=== PATIENT | female | born 1990 | race Two or more races ===

== ENCOUNTER 2020-07-01 10:35 | Inpatient (IN) | payer OTHER ==
[2020-07-01] MEDS ORDERED: IBUPROFEN 600 MG TABLET (FP) PO PRN (12:31)
[2020-07-01] MEDS ORDERED: ONDANSETRON 4 MG/2 ML VIAL IVPUSH PRN (12:31)
[2020-07-01] MEDS ORDERED: CITRIC ACID/SODIUM CITRATE 30 ML UNIT-DOSE CUP PO ONE (12:58)
[2020-07-01] MEDS ORDERED: ELECTROLYTE-148 SOLN 1,000 ML IV SCH (13:00)
--- NOTE | 2020-07-01 13:01 | HP ---
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: Alzheimer's, CVA, Dementia, Migraine, Multiple Sclerosis, Peripheral Neuropathy, Parkinson's, Seizure, Syncope, TIA, Vertigo, Other Cardiovascular: No: AFIB, Aneurysm, Aortic Insufficiency, Aortic Stenosis, CAD, CHF, Deep Vein Thrombosis, HTN, Hyperlipdemia, VT, Mitral Insufficiency, Mitral Stenosis, Murmur, Pulmonary Hypertension, Other Pulmonary: No: Asthma, Bronchitis, Cancer, COPD, O2 Dependent, Pneumonia, Previously Intubated, Pulmonary Embolus, Pulmonary Fibrosis, Sleep Apnea, Other Gastrointestinal: No: Ascites, Cancer, Constipation, Crohn's Disease, Diverticulitis, Diverticulosis, Esophageal Varices, Gastritis, GERD, GI Bleed, Hemorrhoids, Hiatal Hernia, Inflamatory Bowel Disease, Irritable Bowel Disease, Pancreatitis, Peptic Ulcer Disease, Ulcerative Colitis, Other Reproductive: No: Ectopic , Endometriosis, Fibroids, PID, Polycystic Ovary Syndrome, Postmenopausal, Other ...: 3 ...Para: 2 ...Term: 2 ...: 0 ...Spon : 0 ...Induced : 0 ...Living Children: 2 ...Multiple Gestation: 1 ...LMP: 10/16/19 ... Weeks Gestation by Dates: 37 ...EDC by Dates: 07/22/20 ...EDC by Sono: 07/22/20 Heme/Onc: Yes: Anemia Infectious Disease: No: AIDS, C-Diff, Herpes Zoster, HIV, MRSA, STD's, Tuberculosis, VREF, Other Psych: No: Addictions, Anxiety, Bipolar, Depression, Panic, Psychosis, Schizophrenia, Other Musculoskeletal: No: Bursitis, Chronic low back pain, Hemiparesis, Hemiplegia, Osteoarthritis, Paraplegia, Other Rheumatology: Yes: Lupus, Other (Mixed Connective Tissue Disorder) Endocrine: No: Bonifacio's Disease, Meshoppen's Disease, Diabetes Insipidus, Diabetes Mellitus, Hyperparathyroidism, Hyperthyroidism, Hypothyroidism, Osteopenia, SIADH, Other Dermatology: No: Basal Cell, Cellulitis, Eczema, Melanoma, Psoriasis, Squamous Cell, Other - Past Surgical History Past Surgical History: No: None, AAA Repair, AICD, Amputation, Appendectomy, Arthrosocopy, AV Fistula/Graft, Bariatric Surgery, Breast Biopsy, Bypass, CABG, Carotid Endarterectomy, Cataract Removal, Cholecystectomy, Colectomy, Colonoscopy, Colostomy, Craniotomy, , Cystectomy, Hernia Repair, Hysterectomy, Ileal Conduit, Ileosotomy, Joint Replacement, Kidney Transplant, Laminectomy, Liver Transplant, Mastectomy, Nephrectomy, Oopherectomy, Orchiectomy, Permanent Pacemaker, Prostatectomy, Splenectomy, Stent, Thoracotomy, TURP, Tonsillectomy, Tubal Ligation, Upper Endoscopy, Valve Replacement, Vasectomy, Vein Stripping/Ligation Hx Myomectomy: No Hx Transabdominal Cerclage: No - Smoking History Smoking history: Never smoked Have you smoked in the past 12 months: No - Alcohol/Substance Use Hx Alcohol Use: No Home Medications - Allergies Allergies/Adverse Reactions: Allergies Allergy/AdvReac Type Severity Reaction Status Date / Time No Known Allergies Allergy Verified 07/01/20 11:51 - Home Medications Home Medications: Ambulatory Orders Vit 93/Iron Fum/Folic [ Formula Tablet] 1 tab PO DAILY 07/01/20 Review of Systems - Review of Systems Constitutional: reports: No Symptoms Cardiovascular: reports: No Symptoms Respiratory: reports: No Symptoms Physical Exam - Maternity Vital Signs: Vital Signs Temperature 98.2 F 07/01/20 11:28 Pulse Rate 100 H 07/01/20 11:28 Respiratory Rate 18 07/01/20 11:28 Blood Pressure 127/81 07/01/20 11:28 O2 Sat by Pulse Oximetry (%) Constitutional: Yes: Well Nourished, No Distress, Calm - Abdominal Exam/OB Number of Fetuses: Multiple Presentation: Breech Contractions: No Monitor Mode: External Category: I Accelerations: Non-Uniform Decelerations: None - Vaginal Exam/OB Vaginal Bleeding: No Presentation: Marcelino Breech - Physical Exam Edema: No Imaging - Results Ultrasound: Report Reviewed Assessment/Plan 30yo @ 37.0wks here for scheduled C/S, twin , IUGR, breech/cephalic Admit to L&D NPO, IVFs Ancef SCDs Cat I tracing x 2 Risk reviewed with patient and partner; consents signed. Proceed to OR Richard Lyons MD
[2020-07-01] MEDS ORDERED: morphine SULFATE/PF 0.5 MG/ML (2cc Syringe - QUVA) ONE (13:02)
[2020-07-01] MEDS ORDERED: ePHEDrine SULFATE 50 MG/1 ML AMPULE ONE (13:18)
[2020-07-01] MEDS ORDERED: OXYTOCIN 10 UNITS/ML VIAL ONE ×4 (13:31→13:48)
[2020-07-01] MEDS ORDERED: ceFAZolin SODIUM 1 GM VIAL ONE ×2 (13:31)
--- NOTE | 2020-07-01 13:45 | OP ---
Operative Note - Note: Operative Date: 07/01/20 Pre-Operative Diagnosis: 37 week Twin , IUGR Twin A, Breech/Cephalic presentation Operation: Primary Findings: Twin A: VFI, double footling breech, Apgars 9/9, weight pending Twin B: VFI, cephalic, Apgars 9/9, weight pending Normal tubes and ovaries Post-Operative Diagnosis: Same as Pre-op Surgeon: Lacey Lyons Ear Machine Operator: Serge Mantilla Anesthesia: Spinal Estimated Blood Loss (mls): 800 Drains, Volume Out (mls): 100 Operative Report Dictated: Yes
[2020-07-01] MEDS ORDERED: MISOPROSTOL 200 MCG TABLET PV ONE (14:00)
[2020-07-01] MEDS ORDERED: OXYTOCIN 20 UNITS in 0.9% NS 20 UNIT/1,000 ML INFUS.BAG IV ONE (15:02)
[2020-07-01] MEDS ORDERED: predniSONE 5 MG TABLET (UD) PO ONE (16:00)
[2020-07-01] MEDS: IBUPROFEN 800 MG/8 ML IJ IVPB PRN ×2 (16:47→22:53)
[2020-07-01] MEDS: FERROUS SO4 325 MG TABLET (FP) PO SCH (18:24)
--- NOTE | 2020-07-01 20:30 | OP ---
DATE OF OPERATION: 07/01/2020 PREOPERATIVE DIAGNOSIS: A 37-week twin , intrauterine growth restriction of twin A, breech cephalic presentation. POSTOPERATIVE DIAGNOSIS: A 37-week twin , intrauterine growth restriction of twin A, breech cephalic presentation. PROCEDURE: Primary low transverse section. SURGEON: Lacey Lyons MD. GUTTER MOUTH CUTTER: JOSELINE Lyon. ANESTHESIA: Spinal ESTIMATED BLOOD LOSS: 600 URINE OUTPUT: 100 mL of clear urine at the end of the procedure FINDINGS: Twin A, viable female double footling breech, Apgars 9 and 9, weight pending. Twin B, viable female infant, cephalic presentation, Apgars 9 and 9, weight pending, normal tubes and ovaries bilaterally. COMPLICATIONS: None. CONDITION: Stable to recovery room. DESCRIPTION OF PROCEDURE: After appropriate consents were signed, patient was taken to the operating room. Spinal anesthesia was administered. The abdomen was prepped and draped in the normal sterile fashion. Sterile rivera catheter had been inserted in the bladder prior to entry into the operating room. Timeout was performed confirming correct patient and procedure. After anesthesia had been confirmed, a Pfannenstiel skin incision was then carried through to the underlying layers until the fascia was nicked in the midline. Fascia was then extended laterally with the Potter scissors. The inferior aspect of the fascia was then grasped with the Ambreen clamp, tented upwards, and the rectus muscles dissected off bluntly and with Potter scissors. Attention was then paid to the superior aspect which was taken down in a similar fashion. The muscles were bluntly in the midline. Bladder blade was inserted and bladder flap was created with Metzenbaum scissors. The uterus incised in a low transverse segment. Clear amniotic fluid was noted. A was delivered with typical breech maneuver. The cord was clamped and cut, the was handed off to the waiting NICU staff. Twin B was noted to be breech presentation, the amniotic sac was ruptured, clear amniotic fluid was noted for twin B. The was delivered without difficulty with the remaining shoulder and body. The cord was clamped and cut, and twin B was handed off to the waiting NICU staff. Placenta was then removed manually. The uterus was cleared of all clot and debris. The hysterotomy was closed in a single layer with 1-0 Vicryl with good hemostasis. The gutters were cleared of all clot and debris and noted to be unremarkable. Adnexa were inspected and noted to be unremarkable bilaterally. Hysterotomy was reexamined and noted to be hemostatic. Muscles were closed with 2-0 chromic. The fascia was closed with a 1-0 Vicryl. Subcutaneous fat was closed with 2-0 plain. The skin was closed with 3-0 Biosyn. Bandages were applied. Sponge, lap, needle count was correct x3. Patient did receive Ancef at the start of the procedure. She was taken from the operating room to the recovery room in stable condition. MD PEDRO MONTEIRO/[id number]
[2020-07-01] MEDS: HYDROXYCHLOROQUINE SO4 200 MG TABLET (FP) PO SCH (21:33)
[2020-07-02] MEDS: IBUPROFEN 800 MG/8 ML IJ IVPB PRN (05:52)
--- NOTE | 2020-07-02 08:14 | PN ---
Post Progress Note - Subjective Subjective: Not yet ambulating, rivera is out, no nausea/vomiting, no flatus Post Day: 1 Type of Delivery: Primary C/S Vital Signs: Vital Signs Temperature 97.8 F 07/02/20 06:00 Pulse Rate 72 07/02/20 06:00 Respiratory Rate 18 07/02/20 06:00 Blood Pressure 121/78 07/02/20 06:00 O2 Sat by Pulse Oximetry (%) 100 07/01/20 22:00 Breast Exam: Yes: Other Uterus: Yes: Fundus Firm Incision: Yes: Dressing dry and intact, Sutures intact Abdomen/GI: Yes: Abdomen soft Lochia, amount: Moderate Extremities: Yes: Calves non-tender Perineum: Yes: Intact Assessment/Plan 30 y/o on POD # 1 in stable condition and pp/post-op precautions discussed. -Follow up AM CBC -continue PP/post-op care -encourage ambulation
[2020-07-02] MEDS: ACETAMINOPHEN 325 MG TABLET (FP) PO PRN ×4 (09:44→23:07)
[2020-07-02] MEDS: FERROUS SO4 325 MG TABLET (FP) PO SCH ×2 (09:44→17:30)
[2020-07-02] MEDS: HYDROXYCHLOROQUINE SO4 200 MG TABLET (FP) PO SCH ×2 (09:44→21:26)
[2020-07-02] MEDS: IBUPROFEN 600 MG TABLET (FP) PO PRN ×4 (09:45→23:10)
[2020-07-02] MEDS ORDERED: DIPHTH,PERTUSS(ACELL),TET 0.5 ML DISP.SYRIN IM ONE (10:00)
--- NOTE | 2020-07-02 10:45 | PN ---
Progress Note (short form) - Note Progress Note: Anesthesia postop note 30 y/o F s/p spinal anesthesia duramorph for section. POD#1 vss, aaox3, sensorymotor intact distally, pain well controlled. No anesthesia complications.
[2020-07-02 16:36] LABS: BASO % 0.4 % (0-2.0); EOS % 0.5 % (0-4.5); HEMATOCRIT 25.7 % (32.4-45.2); HEMOGLOBIN 8.1 GM/dL (10.7-15.3); LYMPH % 13.8 % (8-40); MCH 25.5 pg (25.7-33.7); MCHC 31.4 g/dl (32.0-36.0); MEAN CELL VOLUME 81.2 fl (80-96); MONO % 6.3 % (3.8-10.2); PLATELET COUNT 130 K/MM3 (134-434); RBC 3.16 M/mm3 (3.60-5.2); RDW 17.6 % (11.6-15.6); WHITE BLOOD COUNT 11.2 K/mm3 (4.0-10.0)
[2020-07-03] MEDS: ACETAMINOPHEN 325 MG TABLET (FP) PO PRN ×2 (06:34→15:35)
[2020-07-03] MEDS: IBUPROFEN 600 MG TABLET (FP) PO PRN ×2 (06:35→15:35)
--- NOTE | 2020-07-03 07:21 | PN ---
Post Progress Note - Subjective Subjective: pt c/o weakness ,No c/o dizziness c/o gaseous distention . , h/o bm after suppository passing flatus infrequently tolerated reg diet . voiding without difficulty h/o IBS Post Day: 2 Type of Delivery: Primary C/S Vital Signs: Vital Signs Temperature 97.8 F 07/02/20 22:00 Pulse Rate 74 07/02/20 22:00 Respiratory Rate 18 07/02/20 22:00 Blood Pressure 118/66 07/02/20 22:00 O2 Sat by Pulse Oximetry (%) 98 07/02/20 10:00 Breast Exam: Yes: Soft, Other (not BF , not pumping ). No: Engorged Uterus: Yes: Fundus Firm, Fundus below umbilicus, Non-tender Incision: Yes: Sutures intact. No: Redness, Oozing Abdomen/GI: Yes: Abdomen soft, Abdominal Distention (mild . BS are active ), Passing flatus, Tolerating PO (diet). No: Tender Lochia: Yes: Rubra Lochia, amount: Moderate Extremities: Yes: Calves non-tender Perineum: Yes: Intact Activity: Ambulating - Labs Labs: CBC WBC 11.2 K/mm3 (4.0-10.0) H 07/02/20 15:30 RBC 3.16 M/mm3 (3.60-5.2) L 07/02/20 15:30 Hgb 8.1 GM/dL (10.7-15.3) L 07/02/20 15:30 Hct 25.7 % (32.4-45.2) L 07/02/20 15:30 MCV 81.2 fl (80-96) 07/02/20 15:30 MCH 25.5 pg (25.7-33.7) L 07/02/20 15:30 MCHC 31.4 g/dl (32.0-36.0) L 07/02/20 15:30 RDW 17.6 % (11.6-15.6) H 07/02/20 15:30 Plt Count 130 K/MM3 (134-434) L 07/02/20 15:30 MPV 10.0 fl (7.5-11.1) 07/02/20 15:30 Absolute Neuts (auto) 8.8 K/mm3 (1.5-8.0) H 07/02/20 15:30 Neutrophils % 79.0 % (42.8-82.8) 07/02/20 15:30 Lymphocytes % 13.8 % (8-40) D 07/02/20 15:30 Monocytes % 6.3 % (3.8-10.2) 07/02/20 15:30 Eosinophils % 0.5 % (0-4.5) 07/02/20 15:30 Basophils % 0.4 % (0-2.0) 07/02/20 15:30 Nucleated RBC % 0 % (0-0) 07/02/20 15:30 Preop h/h 8.7/27.2 Other Findings, Remarks: RS cta Problem List - Problems (1) Status post section routine follow-up Code(s): Z39.2 - ENCOUNTER FOR ROUTINE FOLLOW-UP; Z98.891 - HISTORY OF UTERINE SCAR FROM PREVIOUS SURGERY (2) Anemia Code(s): D64.9 - ANEMIA, UNSPECIFIED Qualifiers: Anemia type: iron deficiency Assessment/Plan s/p primary c/s for twins s/p SLE Mixed Connective tissuse disorder on hydrochloroquin anemia preop , not much cange in h/h preop & post op Twins in 3CN , may consider discharge tomorrow.
[2020-07-03] MEDS: FERROUS SO4 325 MG TABLET (FP) PO SCH ×2 (08:24→18:32)
[2020-07-03 08:34] LABS: BASO % 0.4 % (0-2.0); EOS % 0.3 % (0-4.5); HEMATOCRIT 22.5 % (32.4-45.2); HEMOGLOBIN 7.2 GM/dL (10.7-15.3); LYMPH % 9.5 % (8-40); MCH 25.6 pg (25.7-33.7); MCHC 32.1 g/dl (32.0-36.0); MEAN CELL VOLUME 79.7 fl (80-96); MEAN PLT VOLUME 9.9 fl (7.5-11.1); MONO % 4.7 % (3.8-10.2); NEUT % 85.1 % (42.8-82.8); PLATELET COUNT 130 K/MM3 (134-434); RBC 2.82 M/mm3 (3.60-5.2); RDW 17.3 % (11.6-15.6); WHITE BLOOD COUNT 10.8 K/mm3 (4.0-10.0)
[2020-07-03] MEDS: HYDROXYCHLOROQUINE SO4 200 MG TABLET (FP) PO SCH (11:16)
[2020-07-04] MEDS: ACETAMINOPHEN 325 MG TABLET (FP) PO PRN ×3 (00:33→22:13)
[2020-07-04] MEDS: IBUPROFEN 600 MG TABLET (FP) PO PRN ×3 (00:33→22:12)
[2020-07-04] MEDS: HYDROXYCHLOROQUINE SO4 200 MG TABLET (FP) PO SCH ×3 (00:34→22:09)
[2020-07-04 09:08] LABS: BASO % 0.5 % (0-2.0); EOS % 1.1 % (0-4.5); LYMPH % 19.7 % (8-40); MCH 25.8 pg (25.7-33.7); MCHC 31.6 g/dl (32.0-36.0); MEAN CELL VOLUME 81.7 fl (80-96); MEAN PLT VOLUME 9.6 fl (7.5-11.1); NEUT % 71.7 % (42.8-82.8); PLATELET COUNT 133 K/MM3 (134-434); RDW 17.7 % (11.6-15.6); WHITE BLOOD COUNT 8.7 K/mm3 (4.0-10.0)
[2020-07-04] MEDS: FERROUS SO4 325 MG TABLET (FP) PO SCH ×2 (09:35→17:12)
[2020-07-05] MEDS: IBUPROFEN 600 MG TABLET (FP) PO PRN (08:14)
[2020-07-05] MEDS: FERROUS SO4 325 MG TABLET (FP) PO SCH (08:14)
[2020-07-05] MEDS: ACETAMINOPHEN 325 MG TABLET (FP) PO PRN (08:15)
--- NOTE | 2020-07-05 08:15 | DS ---
Physical Exam-INSIDE SALES COORDINATOR Vital Signs: Vital Signs Temperature 98.2 F 07/05/20 06:08 Pulse Rate 60 07/05/20 06:08 Respiratory Rate 18 07/05/20 06:08 Blood Pressure 114/74 07/05/20 06:08 O2 Sat by Pulse Oximetry (%) 99 07/04/20 22:00 Constitutional: Yes: Well Nourished, No Distress, Calm Eyes: Yes: WNL, Conjunctiva Clear, EOM Intact HENT: Yes: WNL, Atraumatic, Normocephalic Neck: Yes: WNL, Supple, Trachea Midline Cardiovascular: Yes: WNL, Regular Rate and Rhythm Respiratory: Yes: WNL, Regular, CTA Bilaterally Gastrointestinal: Yes: WNL ...Rectal Exam: Yes: WNL Renal/: Yes: WNL ....Post : Yes: Uterus firm, Uterus non-tender, Slight lochia rubra Breast(s): Yes: WNL Musculoskeletal: Yes: WNL Extremities: Yes: WNL Edema: LLE: Trace, RLE: Trace Integumentary: Yes: WNL Wound/Incision: Yes: Clean/Dry, Well Approximated, Steri Strips Neurological: Yes: WNL, Alert, Oriented ...Motor Strength: WNL Psychiatric: Yes: WNL, Alert, Oriented Labs: CBC, BMP 07/04/20 08:00 Delivery - Delivery Section: Primary Type of Anesthesia: Spinal Episiotomy/Laceration: None EBL (cc): 800 Delivery, Single - Stages of Labor Placenta: Yes: Expressed - Feeding Plan Initial Plan: Elected not to breastfeed exclusively throughout hospitalization Delivery, Multiple Births - Stages of Labor Delivery Baby "A" Date: 07/01/20 Time: 13:22 Placenta/Membranes "A" Date: 07/01/20 Time: 13:22 Delivery Baby "B" Date: 07/01/20 Time: 13:23 Placenta/Membranes "B" Date: 07/01/20 Time: 13:23 - Condition of Multiple Births [place] 1 (A) Management Recruiter/Forge Helper Present: Yes Gender: Female Weight: 4 lb 13 oz Total Hours ROM (HRS/MINS): 6 MINS 2 (B) Management Recruiter/Forge Helper Present: Yes Infant Gender: Female Weight: 5 lb 4 oz Total Hours ROM (HRS/MINS): 7 MINS - 1 (A) 1 Minute Score: 8 1 (A) 5 Minutes Score: 9 [place] 2 (B) 1 Minute Score: 8 [place] 2 (B) 5 Minutes Score: 9 Discharge Summary Reason For Visit: TWINS Current Active Problems Anemia (Acute) Status post section routine follow-up (Acute) Procedures: Principal: primary LST c/s Hospital Course: anemia, recived 1 u PRBC Health Concerns: anemia Plan of Treatment: iron, vit , follow up [facility] care 1 week Condition: Stable - Instructions Diet, Activity, Other Instructions: Regular Diet Follow up with Dr. Lyons next week for an incision check Referrals: Lacey Lyons MD [Staff Physician] - - Home Medications Comprehensive Discharge Medication List: Ambulatory Orders Ferrous Sulfate [Feosol] 325 mg PO DAILY #30 tablet 07/01/20 Ibuprofen 600 mg PO Q6H PRN #30 tablet 07/01/20 Oxycodone HCl/Acetaminophen [Percocet 5-325 mg Tablet -] 1 - 2 tab PO Q6H PRN #20 tab MDD 4 07/01/20 Vit 93/Iron Fum/Folic [ Formula Tablet] 1 tab PO DAILY 07/01/20
[2020-07-05 08:37] LABS: EOS % 1.9 % (0-4.5); HEMATOCRIT 25.2 % (32.4-45.2); HEMOGLOBIN 8.1 GM/dL (10.7-15.3); MCH 26.5 pg (25.7-33.7); MCHC 32.3 g/dl (32.0-36.0); MEAN CELL VOLUME 81.9 fl (80-96); MONO % 5.6 % (3.8-10.2); NEUT % 72.5 % (42.8-82.8); PLATELET COUNT 157 K/MM3 (134-434); RBC 3.07 M/mm3 (3.60-5.2); RDW 17.8 % (11.6-15.6); WHITE BLOOD COUNT 8.9 K/mm3 (4.0-10.0)
[2020-07-05] MEDS: HYDROXYCHLOROQUINE SO4 200 MG TABLET (FP) PO SCH (10:10)
[2020-07-05 15:38] VITALS: BP 137/76; PULSE 67; TEMP 98
--- NOTE | 2020-07-08 17:07 | PATH ---
Surgical Pathology Report Patient Name: ISHAAN BETANCOURT [facility]. Rec. #: [id number] /Age/Gender: 1990 (Age: 30) / F Account: [id number] Location: [facility] OBS/BANANA GRADER Taken: 07/01/2020 Received: 07/02/2020 Reported: 07/08/2020 Physicians: Lacey Lyons Specimen(s) Received PLACENTA,TWIN Clinical History , primary twins , 37 weeks Final Diagnosis TWIN PLACENTA, SECTION: SEPARATE DISCS TWIN PLACENTA. PLACENTA A , 284 G THIRD TRIMESTER PLACENTA WITH TRIVASCULAR UMBILICAL CORD AND UNREMARKABLE PLACENTAL MEMBRANES. PLACENTA B , 435 G THIRD TRIMESTER PLACENTA WITH TRIVASCULAR UMBILICAL CORD AND UNREMARKABLE PLACENTAL MEMBRANES. Electronically Signed Nanda Christopher M.D. Gross Description Received fresh labeled "placenta," is a twin placenta comprised of two separate discs, joined by dividing membranes. The dividing membranes are baron and opaque. There are 2 clamps marking the umbilical cord of placenta "A" and 1 clamp marking the umbilical cord of placenta "B", per the surgeon. Placenta "A" is 284 g and measures 13.0 x 9.5 x 3.4 cm. The attached membranes are baron, translucent with focal opacities and insert marginally. The umbilical cord measures 29 cm in length and averages 1 cm in diameter. The cord inserts eccentrically, 2.5 cm to the nearest margin. No true knots or strictures are identified. Cut surface of the umbilical cord reveals 3 vessels. The surface is jewell blue with minimal fibrin deposition and appropriate caliber vessels. The maternal surface is red-brown with focal defects. Sectioning reveals red-brown, spongy parenchyma. No lesions are identified. Placenta "B" is 435 g and measures 15.5 x 15.0 x 3.2 cm. The attached membranes are baron, translucent with focal opacities and insert marginally. The umbilical cord measures 23 cm in length and averages 1 cm in diameter. The cord inserts eccentrically, 1.5 cm to the nearest margin. No true knots or strictures are identified. The cut surface of the umbilical cord reveals 3 vessels. The surface is jewell blue with minimal fibrin deposition and appropriate caliber vessels. The maternal surface is red-brown with focal defects. Sectioning reveals red-brown, spongy parenchyma. No lesions are identified. Utilization Reviewer sections are submitted in 7 cassettes as follows: 1-placenta "A" membrane roll and umbilical cord; 0-2-rvzr-thickness sections of placenta "A"; 4-dividing membranes; 5-placenta "B" membrane roll and umbilical cord; 7-1-yjdh-thickness sections of placenta "B". 07/05/2020 [facility]07/05/2020
== END 2020-07-05 14:50 | disposition home or self-care (01) | DRG 540 ==
LOC: JLDR 10:35 → J3W 16:08
PROVIDERS: ADMIT Obstetrics & Gynecology; ATTEND Obstetrics & Gynecology
PROC: 10D00Z1 Extraction of Products of Conception, Low, Open Approach (ICD-10-PCS; principal; 2020-07-01)
PROC: 30233N1 Transfusion of Nonautologous Red Blood Cells into Peripheral Vein, Percutaneous Approach (ICD-10-PCS; 2020-07-05)
DX: O82 Encounter for cesarean delivery without indication (principal); O36.5930 Maternal care for other known or suspected poor fetal growth, third trimester, not applicable or unspecified; O30.043 Twin pregnancy, dichorionic/diamniotic, third trimester; Z37.2 Twins, both liveborn; Z3A.37 37 weeks gestation of pregnancy; O32.1XX2 Maternal care for breech presentation, fetus 2; O32.1XX1 Maternal care for breech presentation, fetus 1; O99.02 Anemia complicating childbirth; D50.9 Iron deficiency anemia, unspecified; O99.89 Other specified diseases and conditions complicating pregnancy, childbirth and the puerperium; M32.9 Systemic lupus erythematosus, unspecified
CPT/HCPCS: 36415; 36430; 85025; 86850; 86900; 86901; 86922; 88307-TC; 90715; P9058

== ENCOUNTER 2023-07-21 12:00 | Inpatient (IN) | payer OTHER ==
[2023-07-21] MEDS: ELECTROLYTE-148 SOLN 1,000 ML IV SCH (12:45)
[2023-07-21 13:14] VITALS: BMI 28.3
[2023-07-21] MEDS ORDERED: CITRIC ACID/SODIUM CITRATE 30 ML UNIT-DOSE CUP PO ONE (13:15)
[2023-07-21] MEDS ORDERED: FENTANYL CITRATE/PF 50 MCG/ML VIAL ONE (13:44)
[2023-07-21] MEDS ORDERED: morphine SULFATE/PF 1 MG/2 ML (2cc Syringe - QUVA) ONE (13:44)
[2023-07-21] MEDS ORDERED: METHYLERGONOVINE MALEATE 0.2 MG/1 ML AMP IM PRN (14:59)
[2023-07-21] MEDS: IBUPROFEN 800 MG/8 ML IJ IVPB PRN (16:50)
[2023-07-21] MEDS: OXYTOCIN 20 UNITS in 0.9% NS 20 UNIT/1,000 ML INFUS.BAG IV SCH (20:10)
[2023-07-21] MEDS: FERROUS SO4 325 MG TABLET (FP) PO SCH (21:01)
[2023-07-22] MEDS: IBUPROFEN 800 MG/8 ML IJ IVPB PRN (03:27)
[2023-07-22] MEDS: SIMETHICONE 80 MG TAB.CHEW (FP) PO PRN ×3 (03:31→21:58)
[2023-07-22] MEDS: OXYTOCIN 20 UNITS in 0.9% NS 20 UNIT/1,000 ML INFUS.BAG IV SCH ×2 (05:00→16:34)
[2023-07-22 07:01] LABS: BASO % 0.4 % (0-2.0); EOS % 0.3 % (0-4.5); HEMATOCRIT 25.1 % (32.4-45.2); HEMOGLOBIN 7.9 GM/dL (10.7-15.3); LYMPH % 18.8 % (8-40); MCH 24.3 pg (25.7-33.7); MCHC 31.6 g/dl (32.0-36.0); MONO % 5.7 % (3.8-10.2); NEUT % 74.8 % (42.8-82.8); PLATELET COUNT 127 10^3/uL (134-434); RBC 3.26 M/mm3 (3.60-5.2); RDW 16.9 % (11.6-15.6); WHITE BLOOD COUNT 10.9 K/mm3 (4.0-10.0)
[2023-07-22] MEDS: ACETAMINOPHEN 325 MG TABLET (FP) PO PRN (09:10)
[2023-07-22] MEDS: FERROUS SO4 325 MG TABLET (FP) PO SCH ×2 (09:10→21:55)
[2023-07-22] MEDS: PRENATAL VITAMINS W/ FOLIC ACID TABLET (FP) PO SCH (09:10)
[2023-07-22] MEDS: IBUPROFEN 600 MG TABLET (FP) PO PRN ×2 (11:16→21:55)
[2023-07-22] MEDS: ELECTROLYTE-148 SOLN 1,000 ML IV SCH (13:30)
[2023-07-22] MEDS: oxyCODONE HCL 5 MG TABLET PO PRN ×2 (13:55→18:44)
[2023-07-22] MEDS ORDERED: DIPHTH,PERTUSS(ACELL),TET 0.5 ML DISP.SYRIN IM ONE (14:00)
[2023-07-22] MEDS ORDERED: BISACODYL 10 MG SUPP.RECT RC PRN (14:59)
[2023-07-23] MEDS: SENNOSIDES/DOCUSATE COMBO (SENNA PLUS) TABLET (UD) PO PRN ×2 (00:09→20:04)
[2023-07-23] MEDS: oxyCODONE HCL 5 MG TABLET PO PRN (00:10)
[2023-07-23] MEDS: IBUPROFEN 600 MG TABLET (FP) PO PRN ×4 (03:03→20:04)
[2023-07-23] MEDS: SIMETHICONE 80 MG TAB.CHEW (FP) PO PRN ×4 (03:03→20:03)
[2023-07-23] MEDS: PRENATAL VITAMINS W/ FOLIC ACID TABLET (FP) PO SCH (09:02)
[2023-07-23] MEDS: FERROUS SO4 325 MG TABLET (FP) PO SCH ×2 (09:02→21:28)
[2023-07-23] MEDS ORDERED: DIPHTH,PERTUSS(ACELL),TET 0.5 ML DISP.SYRIN IM ONE (10:00)
[2023-07-23] MEDS: ACETAMINOPHEN 325 MG TABLET (FP) PO PRN ×2 (16:15→22:03)
[2023-07-24] MEDS: IBUPROFEN 600 MG TABLET (FP) PO PRN ×2 (05:41→13:17)
[2023-07-24] MEDS: SIMETHICONE 80 MG TAB.CHEW (FP) PO PRN ×2 (05:42→13:17)
[2023-07-24 06:44] LABS: BASO % 0.7 % (0-2.0); EOS % 1.2 % (0-4.5); HEMATOCRIT 24.6 % (32.4-45.2); HEMOGLOBIN 7.9 GM/dL (10.7-15.3); LYMPH % 24.9 % (8-40); MCH 24.6 pg (25.7-33.7); MCHC 32.1 g/dl (32.0-36.0); MEAN CELL VOLUME 76.6 fl (80-96); MEAN PLT VOLUME 9.6 fl (7.5-11.1); MONO % 5.8 % (3.8-10.2); NEUT % 67.4 % (42.8-82.8); PLATELET COUNT 141 10^3/uL (134-434); RBC 3.21 M/mm3 (3.60-5.2); RDW 16.7 % (11.6-15.6); WHITE BLOOD COUNT 7.4 K/mm3 (4.0-10.0)
[2023-07-24] MEDS: oxyCODONE HCL 5 MG TABLET PO PRN (08:58)
[2023-07-24] MEDS: FERROUS SO4 325 MG TABLET (FP) PO SCH (08:59)
[2023-07-24] MEDS: PRENATAL VITAMINS W/ FOLIC ACID TABLET (FP) PO SCH (08:59)
[2023-07-24 09:46] VITALS: BP 119/71; PULSE 79; RESP 18; TEMP 97.5
== END 2023-07-24 14:35 | disposition home or self-care (01) | DRG 540 ==
LOC: JLDR 12:00 → J3W 16:42
PROVIDERS: ADMIT Obstetrics & Gynecology; ATTEND Obstetrics & Gynecology
PROC: 10D00Z1 Extraction of Products of Conception, Low, Open Approach (ICD-10-PCS; principal; 2023-07-21)
DX: O34.211 Maternal care for low transverse scar from previous cesarean delivery (principal); O99.119 Other diseases of the blood and blood-forming organs and certain disorders involving the immune mechanism complicating pregnancy, unspecified trimester; M35.9 Systemic involvement of connective tissue, unspecified; O90.81 Anemia of the puerperium; D64.9 Anemia, unspecified
CPT/HCPCS: 36415; 80053; 85025; 85610; 86780; 86850; 86900; 86901; 88307-TC; 90715